=== PATIENT | female | born 1960 | race Caucasian/White ===

== ENCOUNTER 2018-09-10 06:40 | Day surgery (SDC) | payer OTHER ==
[2018-09-10] MEDS ORDERED: Ringers Lactate 1,000 ML IV ONE (07:12)
[2018-09-10] MEDS ORDERED: PROPOFOL 200 MG/20 ML VIAL IV ONE (07:38)
[2018-09-10] MEDS ORDERED: LIDOCAINE 2% MPF 5 ML VIAL ONE (07:41)
[2018-09-10] MEDS ORDERED: EPHEDRINE SULF 50 MG/ML SYR ONE (08:16)
[2018-09-10] MEDS ORDERED: NA CHLORIDE 0.9% 500 ML ONE (08:48)
[2018-09-10] MEDS ORDERED: METRONIDAZOLE 500mg IVPB 500 MG/100 ML BAG IV ONE (08:49)
[2018-09-10] MEDS ORDERED: Levofloxacin500mg IV 500 MG/100 ML BAG IV ONE (08:49)
--- NOTE | 2018-09-10 20:07 | OP ---
Surgeon: Martin Peraza MD Procedures To Be Performed: Colonoscopy and upper endoscopy. Upper Endoscopy: Plan For Anesthesia: Monitored anesthesia care. Complexity: Average. After obtaining initial interaction, the risks and complications of both procedures which include, bu t are not limited to bleeding, infection, perforation, and anesthesia complication were discussed. S he understands and agrees. Upper Endoscopy Indication: Longstanding GERD, also history of elevated liver enzymes. Technique: After sedation, the scope was advanced into the mouth and carefully guided up till the 3r d portion of the duodenum. After the completion of the examination and all diagnostic maneuvers, the scope and equipment were withdrawn and procedure terminated in a safe manner. Findings: Esophagus; no gross lesion in the upper and mid esophagus. In the distal esophagus, howev er, there was a small hiatal hernia seen. The GE junction was around 35 cm and the site of hiatal na rrowing was 37 cm. The Z-line was irregular. Biopsies taken. Stomach; minimal erythema seen in the antrum. Antral and body biopsies taken. Several polyps ranging in size from 6-8 mm were seen. The se appeared to be benign fundic gland polyps. They were mostly located in the body. Building Coordinator biopsies were taken. Duodenum; the bulb had a slightly granular mucosa. Small bowel biopsies were t aken to rule out celiac disease. The scope was advanced up till the 3rd portion for the biopsies. Tolerance To Anesthesia: Excellent. Subsequently, we went ahead with the colonoscopy. The patient's bed was rotated. A digital rectal exam was performed and the scope was inserted into t he rectum. It was carefully guided up till the cecum. The cecum was identified by the appendiceal o rifice and ileocecal valve. Subsequently, the scope was withdrawn while carefully examining the muco sa. Quality of prep according to Point prep score was 9/9. Scope withdrawal time was 10 minutes. Findings: In the cecum at very acute angle, a very flat polyp was seen. This was around 1 cm in siz e. Location was extremely difficult. First, the area was tattooed and then a snare was attempted, h owever, due to the location and the flat nature of the polyp, even after the tattoo injection, the pl an was quickly canceled and we went ahead with a hot biopsy with which we were able to get a good pie ce and cauterize the base. Specimen has been sent to Pathology. At the hepatic flexure, a 4 mm sess ile polyp was seen. This was removed with hot biopsy. In the sigmoid colon, few small diverticula s een. In the rectum, retroflexion revealed grade 1 internal hemorrhoids. Complications: None. Tolerance To Anesthesia: Excellent. Postoperative Diagnoses: Hiatal hernia, gastric polyp, gastritis, colonic diverticulosis and colon p olyp. Plan: 1.Await pathology results. 2.Continue PPI. 3.We will prophylactically give her antibiotics, Levaquin as well as Flagyl. Based on the results o f the biopsies of the colonic polyp in the cecum, may need a staged colonoscopy in 6 months to a year , high risk as the patient should watch out for any abdominal pain and bleeding. Follow up in the GI clinic in 2 weeks. /JEREMY Voice ID: [id number] Report ID: [id number]
== END 2018-09-10 09:54 | disposition home or self-care (01) ==
LOC: OR 06:40
PROVIDERS: ATTEND Internal Medicine Gastroenterology
PROC: 3E0H8GC Introduction of Other Therapeutic Substance into Lower GI, Via Natural or Artificial Opening Endoscopic (ICD-10-PCS; 2018-09-10)
PROC: 0DB38ZX Excision of Lower Esophagus, Via Natural or Artificial Opening Endoscopic, Diagnostic (ICD-10-PCS; 2018-09-10)
PROC: 0DB88ZX Excision of Small Intestine, Via Natural or Artificial Opening Endoscopic, Diagnostic (ICD-10-PCS; 2018-09-10)
PROC: 0DB68ZX Excision of Stomach, Via Natural or Artificial Opening Endoscopic, Diagnostic (ICD-10-PCS; 2018-09-10)
PROC: 0DBH8ZX Excision of Cecum, Via Natural or Artificial Opening Endoscopic, Diagnostic (ICD-10-PCS; principal; 2018-09-10 07:30)
PROC: 0DBL8ZX Excision of Transverse Colon, Via Natural or Artificial Opening Endoscopic, Diagnostic (ICD-10-PCS; 2018-09-10 07:30)
DX: K29.50 Unspecified chronic gastritis without bleeding (principal); K21.9 Gastro-esophageal reflux disease without esophagitis; Z12.11 Encounter for screening for malignant neoplasm of colon; K63.5 Polyp of colon; K31.7 Polyp of stomach and duodenum; D12.0 Benign neoplasm of cecum; K57.30 Diverticulosis of large intestine without perforation or abscess without bleeding; K44.9 Diaphragmatic hernia without obstruction or gangrene; K64.8 Other hemorrhoids; I10 Essential (primary) hypertension; E66.01 Morbid (severe) obesity due to excess calories; Z88.2 Allergy status to sulfonamides; Z88.6 Allergy status to analgesic agent
CPT/HCPCS: 88305; 88312